=== PATIENT | female | born 1940 | race Caucasian/White ===

== ENCOUNTER 2017-01-24 09:35 | Emergency (ER) | payer MEDICARE, OTHER ==
[2017-01-24 09:43] VITALS: BP 145/77
--- NOTE | 2017-01-24 10:44 | UC ---
Complaint Female HPI - HPI Summary HPI Summary: burning with uretheral tenderness with dehydration---sometimes she gets this these sx with UTI sometimes she is just dehydrated--which is what she believes now, but just wants to be sure - History Of Current Complaint Hx Obtained From: Patient ?: No Onset/Duration: Sudden Onset, Lasting Days - 5, Still Present Timing: Constant Severity Initially: Moderate Severity Currently: Moderate Character: Burning Aggravating Factor(s): Urination Alleviating Factor(s): Nothing Associated Signs And Symptoms: Positive: Negative <Giselle Alfaro - Last Filed: 01/24/17 18:13> <Steffi Gupta - Last Filed: 01/25/17 06:57> - History Of Current Complaint Chief Complaint: UCGU Stated Complaint: URINARY ISSUE Time Seen by Provider: 01/24/17 10:28 - Allergies/Home Medications Allergies/Adverse Reactions: Allergies Allergy/AdvReac Type Severity Reaction Status Date / Time Wasp Venom Protein Allergy Severe Anaphylatic Verified 01/24/17 09:43 Shock Lactose Intolerance (GI) Allergy Unknown Verified 01/24/17 09:43 Reaction Details Latex AdvReac Rash Verified 01/24/17 09:43 PMH/Surg Hx/FS Hx/Imm Hx Previously Healthy: Yes Endocrine History: Hypothyroidism - Surgical History Surgical History: Yes Surgery Procedure, Year, and Place: [place]STERECT[place], 1977, [facility] [place], [facility]. [place], 1971, [place]. Ovarian Cyst Removed 06/04 at [facility] [place] - Family History Known Family History: Positive: None - Social History Occupation: Retired Lives: With Family Alcohol Use: Daily Alcohol Amount: 1 Drink Daily- Varies Substance Use Type: None Smoking Status (MU): Never Smoked Tobacco <Giselle Alfaro - Last Filed: 01/24/17 18:13> Review of Systems Constitutional: Negative Skin: Negative Eyes: Negative ENT: Negative Respiratory: Negative Cardiovascular: Negative Gastrointestinal: Negative Genitourinary: Dysuria Motor: Negative Neurovascular: Negative Musculoskeletal: Negative Neurological: Negative Psychological: Negative All Other Systems Reviewed And Are Negative: Yes <Giselle Alfaro - Last Filed: 01/24/17 18:13> Physical Exam Triage Information Reviewed: Yes Appearance: Well-Appearing, No Pain Distress, Well-Nourished Vital Signs: Initial Vital Signs Temp 98.1 F 01/24/17 09:39 Pulse 98 01/24/17 09:39 Resp 16 01/24/17 09:39 BP 145/77 01/24/17 09:39 Pulse Ox 100 01/24/17 09:39 Vital Signs Reviewed: Yes Eye Exam: Normal Eyes: Positive: Conjunctiva Clear ENT Exam: Normal ENT: Positive: Normal ENT inspection, Hearing grossly normal. Negative: Nasal congestion, Nasal drainage, Trismus, Muffled/hoarse voice Dental Exam: Normal Neck exam: Normal Neck: Positive: Supple, Nontender Respiratory Exam: Normal Respiratory: Positive: Normal breath sounds, No respiratory distress Cardiovascular Exam: Normal Cardiovascular: Positive: RRR, Pulses Normal, Brisk Capillary Refill Abdominal Exam: Normal Abdomen Description: Positive: Nontender, No Organomegaly, Soft. Negative: CVA Tenderness (R), CVA Tenderness (L) Bowel Sounds: Positive: Present Musculoskeletal Exam: Normal Musculoskeletal: Positive: Strength Intact, ROM Intact, No Edema Neurological Exam: Normal Neurological: Positive: Alert, Muscle Tone Normal Psychological Exam: Normal Skin Exam: Normal <Giselle Alfaro - Last Filed: 01/24/17 18:13> Vital Signs: Initial Vital Signs Temp 98.1 F 01/24/17 09:39 Pulse 98 01/24/17 09:39 Resp 16 01/24/17 09:39 BP 145/77 01/24/17 09:39 Pulse Ox 100 01/24/17 09:39 <Steffi Gupta - Last Filed: 01/25/17 06:57> Re-Evaluation - Re-Evaluation First Eval Change: Unchanged - ua =1 blood patient staes she always has this and has a cystoscopy <Giselle Alfaro - Last Filed: 01/24/17 18:13> Complaint Female Dx - Course Course Of Treatment: increase fluids, follow with pcp - Differential Dx/Diagnosis Differential Diagnosis/HQI/PQRI: Ureteral Stone, Urinary Tract Infection, Other - dysuria Provider Diagnoses: Dysuria <Giselle Alfaro - Last Filed: 01/24/17 18:13> Discharge <Giselle Alfaro - Last Filed: 01/24/17 18:13> <Steffi Gupta - Last Filed: 01/25/17 06:57> - Discharge Plan Condition: Stable Disposition: HOME Patient Education Materials: Dysuria (ED) Referrals: Susie Wilson MD [Primary Care Provider] - Maxim Yeung MD [Medical Doctor] - Attestation Statement User Type: Provider - I was available for consult. This patient was seen by the RENEE. The patient was not presented to, seen by, or examined by me. -Deisy <Steffi Gupta - Last Filed: 01/25/17 06:57>
== END 2017-01-24 10:52 | disposition home or self-care (01) ==
LOC: UCEAST 09:35
DX: R30.0 Dysuria (principal)
CPT/HCPCS: 81003; 99211; G0463

== ENCOUNTER 2017-06-22 07:34 | Inpatient (IN) | payer MEDICARE, OTHER ==
--- NOTE | 2017-06-13 19:23 | HP ---
HISTORY AND PHYSICAL: DATE OF SURGERY: 06/22/17 DATE OF OFFICE VISIT: 06/12/17 SURGEON: Monse Lynne MD * (DICTATED BY WALDO WALKER) PROCEDURE: Right total hip arthroplasty. CHIEF COMPLAINT: Right hip pain. HISTORY OF PRESENT ILLNESS: Ms. Mann is a 77-year-old female with complaints of right hip pain secondary to advanced osteoarthritis. She has failed conservative management and elected to proceed with a right total hip arthroplasty, which is scheduled with Dr. Lynne on 06/22/17. PAST MEDICAL HISTORY: 1. Hypothyroidism. 2. High cholesterol. 3. Sleep apnea. 4. History of liver cancer. PAST SURGICAL HISTORY: 1. Appendectomy. 2. Exploratory laparoscopy. 3. Hysterectomy. 4. Oophorectomy. CURRENT MEDICATIONS: 1. ProAir HFA. 2. Levothyroxine 75 mcg daily. 3. Vitamin B. 4. Aspirin 81 mg daily. 5. Vitamin C. 6. Centrum Silver. 7. Fish oil. 8. Glucosamine/chondroitin. 9. EpiPen. ALLERGIES: To WASPS. FAMILY HISTORY: Diabetes, dementia, COPD, and cancer. SOCIAL HISTORY: She is a 77-year-old female. She lives with her spouse. She does not smoke or use drugs. She uses occasional alcohol. REVIEW OF SYSTEMS: A complete 14-point review of systems was reviewed with the patient, and it was positive for hypothyroidism, sleep apnea, and exercise- induced asthma. She denies a history of DVT, PE, hepatitis C, HIV, MRSA, or anesthesia problems. PHYSICAL EXAMINATION GENERAL: She is well developed, well nourished, in no acute distress. VITAL SIGNS: She stands 5 feet 1 inch tall, he is 120 pounds. Her blood pressure is 142/84, heart rate is 96. HEENT: Normocephalic, atraumatic. NECK: Supple. No palpable lymph nodes. PULMONARY: Lungs are clear to auscultation bilaterally. CARDIO: Regular rate and rhythm. ABDOMEN: Soft, nontender, nondistended. NEUROLOGICAL: Alert and oriented x3. Cranial nerves II through XII are intact. MUSCULOSKELETAL: Right lower extremity, the skin is intact. She has no open wounds or abrasions. She walks with an antalgic type gait, favoring her right hip. She has decreased internal and external rotation of her right hip. She has 2+ dorsalis pedis pulses. Intact sensation in her lower extremities. Muscle group strengths are intact at 5/5. ASSESSMENT AND PLAN: Ms. Mann is a 77-year-old female with complaints of right hip pain secondary to advanced osteoarthrosis. She has failed conservative management and elected to proceed with a right total hip arthroplasty, which is scheduled for 06/22/[address] Lynne discussed the risks and benefits of the surgery at today's visit and all of her questions were answered. Coumadin, Colace, and Percocet were sent to her pharmacy for postoperative pain control and DVT prophylaxis. She will see Dr. Lynne back 2 weeks after the surgery. WALDO WALKER [id number]/[facility]PS #: [id number] MTDD
[~2017-06-22 07:34] MED LIST: Buffered Lidocaine 0.9% SYRIN* 5 ML/SYR SYRINGE INTRADERM ONE; Famotidine IV* 10 MG/ML 2 ML (20 mg) IV ONE; Metoclopramide TAB* 10 MG PO ONE
[2017-06-22] MEDS ORDERED: Metoclopramide TAB* 10 MG ONE (08:31)
[2017-06-22] MEDS ORDERED: Famotidine IV* 10 MG/ML 2 ML (20 mg) ONE (08:31)
[2017-06-22] MEDS ORDERED: ceFAZolin 2 GM PREMIX (*) 2 GM/50 ML BAG IVPB ONE (08:31)
[2017-06-22] MEDS ORDERED: Bupivacaine 0.5% SDV PF* 30 ML VIAL ONE ×2 (09:30→10:42)
[2017-06-22] MEDS ORDERED: Propofol* 10 MG/ML 20 ML BTL IV PUSH ONE (09:30)
[2017-06-22] MEDS ORDERED: Morphine PF AMP (0.5MG/ML)* 5 MG/10 ML AMP ONE (09:30)
[2017-06-22] MEDS ORDERED: Lidocaine 2% PF * 5 ML VIAL ONE (09:30)
[2017-06-22] MEDS ORDERED: Midazolam* 1 MG/ML 5 ML VIAL (5 MG) ONE (09:30)
[2017-06-22] MEDS ORDERED: fentaNYL* 50 MCG/ML 2 ML VIAL (100 MCG VIAL) ONE (09:30)
[2017-06-22] MEDS ORDERED: KETAMINE HCL* 50 MG/ML 10 ML VIAL ONE (09:30)
[2017-06-22] MEDS ORDERED: Lidocaine 0.5%* 50 ML SDV ONE (09:30)
[2017-06-22] MEDS ORDERED: Ondansetron INJ* 2 MG/ML VIAL ONE (09:30)
[2017-06-22] MEDS ORDERED: Dexamethasone IV* 4 MG/ML 1 ML (4 MG) ONE (09:30)
[2017-06-22] MEDS ORDERED: Ketorolac INJ* 30 MG/ML 1 ML VIAL ONE (09:30)
[2017-06-22] MEDS ORDERED: diPHENhydraMINE IV* 50 MG/ML 1 ml VIAL (BENADRYL) IV PRN ×2 (10:23→12:06)
[2017-06-22] MEDS ORDERED: Polyethylene Glycol 3350* 17 GM PACKET PO PRN (10:23)
[2017-06-22] MEDS ORDERED: Bisacodyl SUPP* 10 MG SUPP PR PRN (10:23)
[2017-06-22] MEDS ORDERED: EPINEPHRINE 1 MG/ML 1 ML VIAL SUBCUT PRN (10:27)
[2017-06-22] MEDS ORDERED: Phenylephrine IV* 40 MCG/ML 10 ML SYRINGE ONE (11:05)
[2017-06-22] MEDS ORDERED: EPHEDrine (Pressors)* 50 MG/ML VIAL ONE (11:07)
[2017-06-22] MEDS ORDERED: Ondansetron INJ* 2 MG/ML VIAL IV PRN ×2 (11:46→12:06)
[2017-06-22] MEDS ORDERED: fentaNYL* 50 MCG/ML 2 ML VIAL (100 MCG VIAL) IV PRN (11:46)
[2017-06-22] MEDS ORDERED: Naloxone* 0.4 MG/ML 1 ML VIAL IV PRN ×3 (12:06→12:19)
[2017-06-22] MEDS ORDERED: EPHEDrine (Pressors)* 50 MG/ML VIAL IV PUSH PRN (12:06)
[2017-06-22] MEDS ORDERED: oxyCODONE/Acetamin 5/325 MG* TAB PO PRN ×2 (12:06)
[2017-06-22] MEDS ORDERED: Ketorolac INJ* 30 MG/ML 1 ML VIAL IV PRN (12:06)
[2017-06-22] MEDS ORDERED: Ropivacaine 0.1% (300 MG) in 300mL NS EPIDURAL EPIDURAL SCH (12:20)
[2017-06-22] MEDS ORDERED: Ropivacaine* 300 MG in NS 0.9% 250 ML* 240 ML EPIDURAL SCH (13:00)
--- NOTE | 2017-06-22 13:42 | RAD ---
Indication: Right total hip replacement. Single view of the pelvis demonstrates right hip replacement in satisfactory position. No loosening is noted. Pelvic ring is intact. IMPRESSION: Intraoperative control films for right hip replacement.
[2017-06-22] MEDS ORDERED: diPHENhydraMINE IV* 50 MG/ML 1 ml VIAL (BENADRYL) ONE (14:06)
--- NOTE | 2017-06-22 14:36 | RAD ---
Indication: Post RIGHT total hip arthroplasty. Comparison: Intraoperative exam of the same date and May 03, 2017 radiographs. Technique: Low AP pelvis and proximal femurs as well as AP and crosstable lateral views RIGHT hip Report: RIGHT total hip prosthesis in place with anatomic alignment. No periprosthetic fracture evident. Surrounding soft tissue edema and soft tissue emphysema. Pelvic phleboliths. IMPRESSION: Unremarkable immediate postop appearance following RIGHT total hip replacement.
[2017-06-22] MEDS ORDERED: Warfarin TAB(*) 6 MG PO ONE (17:00)
[2017-06-22] MEDS ORDERED: ceFAZolin 1 GM VIAL(*) 1 GM in NS 0.9% 50 ML* 50 ML IVPB SCH (18:00)
[2017-06-22] MEDS ORDERED: Aspirin Low Dose CHEW TAB* 81 MG PO SCH (20:00)
[2017-06-22 20:34] LABS: Albumin 3.4 g/dL (3.2-5.2); BUN/Creatinine Ratio 22.1 (8-20); EGFR African American 108.5 (>60); EGFR Non-African American 84.4 (>60); Globulin 2.3 g/dL (2-4); Potassium 4.5 mmol/L (3.5-5.0); Total Bilirubin 0.5 mg/dL (0.2-1.0); Total Protein 5.7 g/dL (6.4-8.9)
[2017-06-22] MEDS ORDERED: Iohexol 350* (CONTRAST) 500 ML MDV IV ONE (20:40)
[2017-06-22] MEDS ORDERED: ceFAZolin 1 GM in Dextrose (*) 1 GM/50 ML BAG IVPB SCH (21:00)
--- NOTE | 2017-06-22 22:24 | CONS ---
CC: Dr. Lynne * CONSULTATION REPORT: DATE OF CONSULT: 06/22/17 ATTENDING PHYSICIAN: Spenser Gupta MD PHYSICIAN REQUESTING CONSULTATION: Monse Lynne MD REASON FOR CONSULTATION: Altered vision. HISTORY OF PRESENT ILLNESS: Ms. Mann is a relatively healthy 77-year-old female with past medical history significant for hypothyroidism and sleep apnea who underwent a right hip replacement today with Dr. Lynne. She was recovered in the PACU and per the , did not make a note of any altered vision. She had both an epidural and general anesthesia. The patient subsequently developed some itching and received a dose of Benadryl. She arrived on short stay around 2 to 2:30 p.m. As she woke up, she noted to her and then subsequently to the nurse that she was having what she would describe as blurry vision. The nurse notified the orthopedic PA, who asked Hospitalist for a consultation. The patient states she has a history of vertigo and states that this does not feel like vertigo. She reports vertigo as a spinning and that her vision is moving towards a circular motion towards her face. The patient reports that when she closes her eyes, it goes away. When she closes 1 eye, it gets better. The patient prefers to have the lights off. She denies any headache or nausea with this. The patient reports no other neurological deficits, numbness, or weakness. Hospitalists were asked to evaluate the patient's altered vision. PAST MEDICAL HISTORY: 1. Hypothyroidism. 2. High cholesterol. 3. Sleep apnea. 4. Liver cancer. PAST SURGICAL HISTORY: 1. Appendectomy. 2. Laparoscopy. 3. Hysterectomy. 4. Oophorectomy. HOME MEDICATIONS: Include: 1. Multivitamin 1 capsule oral daily. 2. Calcium 1 tablet oral daily. 3. Synthroid 75 mcg oral daily. 4. Vitamin B12 500 mcg oral daily. 5. Vitamin D 1000 units oral daily. 6. Citracal 400 mg oral daily. 7. Aspirin 81 mg oral daily. 8. Vitamin C 1000 mg oral daily. 9. Epinephrine subcu once as needed. 10. Glucosamine chondroitin 1 tablet oral daily. Currently in the hospital, she is additionally on: 1. Ancef. 2. Zofran. 3. Percocet. 4. MiraLAX. 5. Toradol. 6. Colace. 7. Benadryl. 8. Tylenol. ALLERGIES: WASP VENOM, PROTEIN, LACTULOSE INTOLERANCE, LATEX. FAMILY HISTORY: The patient states she has a family history of diabetes, dementia, COPD and cancer. SOCIAL HISTORY: The patient denies any alcohol or drug use. She lives at home with her spouse. He would be her surrogate decision maker in the event the patient cannot make decisions for herself. REVIEW OF SYSTEMS: I performed a 14-point review of systems; all the pertinent positives and negatives are mentioned in the history of present illness, the remaining review of systems are negative. PHYSICAL EXAM: Appearance: The patient is alert, lying in bed with her eyes closed, in no apparent distress. Head, Eyes, Ears, Nose and Throat: Normocephalic/atraumatic. Pupils were equal and reactive to light. The patient has some nystagmus to both the right and left gaze. It also appears she has some eye movements while staring straight ahead. Neck: Supple. There was no lymphadenopathy noted. Lungs: There was no accessory muscle use and lungs are clear to auscultation. Heart: S1, S2 were crisp. Rate and rhythm were regular. Abdomen was soft, nontender, nondistended. Skin: Right hip incision was intact. Neurological: The patient was alert and oriented x3. Cranial nerves II through XII were intact. Musculoskeletal: Equal extremity strength bilaterally. I did not access the full strength of the right lower extremity. IMPRESSION: This is a 77-year-old female status post right total hip replacement who has experienced alternation of vision. ASSESSMENT AND PLAN: 1. Altered vision. Case was discussed with Neurology. She will have a CT of the head now. If this is negative for any bleed, Orthopedic Surgery has okayed the administration of baby aspirin. Subsequently, she will have a CTA of the head and neck once she has a repeat metabolic panel to rule out any large vessel occlusion. If this were to be a neurologic event, the patient is clearly not a candidate for TPA due to her surgery. It is likely that these symptoms are from one of the anesthetics or medication that she has received postoperatively. She will be evaluated by Dr. Sebastian from Neurology in the morning. If her symptoms persist, consideration will be given for MRI. For the time being, overnight, she will be placed on telemetry and will have neuro checks. 2. Postop day 0, hip replacement management will be per Orthopedic Surgery. The patient will have followup lab work done tomorrow. Lam will be discontinued on postop day 1 and she will have physical therapy and occupational therapy. She has Percocet ordered for pain control. 3. Hypothyroidism, Synthroid will continue. 4. Sleep apnea. She has her home sleep apnea machine to wear. 5. DVT prophylaxis. The patient will be started on Lovenox tomorrow and was given warfarin tonight. 6. Fluid, electrolytes, and nutrition. The patient will have a regular diet. TIME SPENT: On this consultation was 60 minutes and 35 minutes were spent with the patient discussing events after her surgery and past medical history. DERREK CLARK NP [id number]/[facility] #: [id number] KEV
[2017-06-22] MEDS: Docusate CAP* 100 MG PO SCH (23:23)
[2017-06-22] MEDS: Aspirin Low Dose CHEW TAB* 81 MG PO SCH (23:23)
[2017-06-23] MEDS: ceFAZolin 1 GM in Dextrose (*) 1 GM/50 ML BAG IVPB SCH ×2 (02:18→10:00)
[2017-06-23 05:52] LABS: Hematocrit 27 % (35-47); Hemoglobin 9.3 g/dl (12.0-16.0)
[2017-06-23] MEDS ORDERED: Ondansetron TAB* 4 MG PO PRN (06:00)
[2017-06-23] MEDS ORDERED: Morphine INJ* 2 MG/ML 1 ML SYRINGE (TWO MG - NEW SYRINGE VERSION) IV PRN (06:00)
[2017-06-23] MEDS ORDERED: oxyCODONE TAB* 5 MG TAB PO PRN ×2 (06:00→12:29)
[2017-06-23] MEDS ORDERED: diPHENhydraMINE IV* 50 MG/ML 1 ml VIAL (BENADRYL) IV PRN (06:00)
[2017-06-23] MEDS ORDERED: oxyCODONE/Acetamin 5/325 MG* TAB PO PRN ×2 (06:00)
[2017-06-23] MEDS: Levothyroxine TAB* 75 MCG TAB PO SCH (06:05)
[2017-06-23 06:06] LABS: BUN/Creatinine Ratio 20.6 (8-20); Calcium 8.5 mg/dL (8.6-10.3); EGFR African American 108.5 (>60); EGFR Non-African American 84.4 (>60); Potassium 4.5 mmol/L (3.5-5.0)
--- NOTE | 2017-06-23 07:19 | RAD ---
INDICATION: Visual changes status post anesthesia. COMPARISON: There are no prior studies available for comparison. TECHNIQUE: Contiguous axial sections of the brain were obtained from the skull base to the vertex without contrast. FINDINGS: The ventricles, cisterns and sulci are within normal limits. No significant focal abnormality or mass effect is seen. There is no evidence for hemorrhage. No significant focal osseous abnormality is seen. The visualized portion of the paranasal sinuses and mastoid air cells appear clear. IMPRESSION: NO EVIDENCE FOR GROSS ACUTE INFARCT, MASS EFFECT OR HEMORRHAGE.
[2017-06-23] MEDS: Ondansetron INJ* 2 MG/ML VIAL IV PRN ×2 (08:52→14:51)
[2017-06-23] MEDS: Cyanocobalamin TAB* 500 MCG PO SCH (08:55)
[2017-06-23] MEDS ORDERED: Iohexol 350* (CONTRAST) 500 ML MDV IV ONE (09:15)
[2017-06-23] MEDS: Acetaminophen TAB* 325 MG PO PRN ×3 (09:59→23:59)
[2017-06-23] MEDS: Aspirin Low Dose CHEW TAB* 81 MG PO SCH (09:59)
[2017-06-23] MEDS: Docusate CAP* 100 MG PO SCH ×2 (09:59→21:04)
[2017-06-23] MEDS ORDERED: Enoxaparin(*) 30 MG/0.3 ML SYR SUBCUT SCH (11:00)
[2017-06-23] MEDS ORDERED: Scopolamine 1.5 mg* PATCH ONE (11:33)
[2017-06-23] MEDS ORDERED: Scopolamine 1.5 mg* PATCH TRANSDERM SCH (12:00)
[2017-06-23] MEDS ORDERED: Scopolamine PATCH Remove* 1 NOTE MISC PATCH OFF SCH (12:00)
--- NOTE | 2017-06-23 12:27 | PN ---
Progress Note - Progress Note Date of Service: 06/23/17 SOAP: Subjective: 77 y/o female s/p R BRYANT 06/[address] Lynne. Patient does not remember yesterdays events, head feels clear today, no light headedness. C/O nausea with vomiting, unable to tolerate solid foods currently. no questions / concerns about surgery. afebrile, vss Objective: General- resting in bed, AO, NAD MSK- dressing intact, + DF/PF b/l, PT2+ , sensation intact to light touch b/l, neg homans b/l. Vital Signs Temp 98.1 F 06/23/17 07:19 Pulse 100 06/23/17 07:19 Resp 16 06/23/17 07:35 BP 105/49 06/23/17 07:19 Pulse Ox 94 06/23/17 07:19 Intake & Output 06/22/17 06/23/17 06/23/17 18:59 06:59 18:59 Intake Total 2200 2660 Output Total 125 400 250 Balance 2074 2260 -250 Weight 54.885 kg 54.885 kg Intake: IV Fluids 2200 2000 LR 2200 2000 Oral 660 Output: Urine 0 Lam 125 400 Emesis 250 Assessment: Stable 77 y/o female s/p R BRYANT 06/[address] Lynne. Plan: - Neuro consult placed- Likely symptoms from anesthesia, CT brain negative - DVT prophylax- INR 1.24, 4mg coumadin tonight, continue lovenox - Continue PT/ OT - Pain regimen changed- Tylenol at baseline with Ultram for mild/ moderate pain and 1/2 oxycodone to 1 for mod- severe pain. Active Medications Generic Name Dose Route Start Last Admin Trade Name Freq PRN Reason Stop Dose Admin Acetaminophen 650 mg 06/22/17 10:23 06/23/17 09:59 Tylenol Tab* PO 650 mg Q4H PRN Administration PAIN OR TEMPERATURE Aspirin 81 mg 06/22/17 20:00 06/23/17 09:59 Aspirin Low Dose Tab* PO 81 mg DAILY JANICE Administration Bisacodyl 10 mg 06/22/17 10:23 Dulcolax Supp* CA DAILY PRN constipation Cyanocobalamin 500 mcg 06/23/17 09:00 06/23/17 08:55 Vitamin B12 Tab* PO Not Given DAILY JANICE Diphenhydramine HCl 12.5 mg 06/23/17 06:00 Benadryl Iv* IV Q6H PRN PRURITIS Docusate Sodium 100 mg 06/22/17 21:00 06/23/17 09:59 Colace Cap* PO 100 mg BID JANICE Administration Enoxaparin Sodium 30 mg 06/23/17 11:00 06/23/17 11:31 Lovenox(*) SUBCUT 30 mg Q24H JANICE Administration Epinephrine HCl 0.3 mg 06/22/17 10:27 Adrenalin 1 Mg/Ml SUBCUT ONCE PRN Allergy Symptoms Lactated Ringer's 1,000 mls @ 100 mls/hr 06/22/17 11:00 06/23/17 01:39 Lactated Ringers 1000 Ml Bag* IV 100 mls/hr PER RATE JANICE Administration Lactulose 30 ml 06/22/17 10:23 Lactulose* PO Q6H PRN constipation Levothyroxine Sodium 75 mcg 06/23/17 06:00 06/23/17 06:05 Synthroid Tab* PO 75 mcg DAILY@0600 [facility] Administration Magnesium Hydroxide 30 ml 06/22/17 10:23 Milk Of Magnesia Liq* PO Q6H PRN constipation Morphine Sulfate 2 mg 06/23/17 06:00 Morphine Inj (Syringe)* IV Q2H PRN PAIN Ondansetron HCl 4 mg 06/23/17 06:00 06/23/17 08:52 Zofran Inj* IV 4 mg Q6H PRN Administration nausea Ondansetron HCl 4 mg 06/23/17 06:00 Zofran Tab* PO Q6H PRN NAUSEA Oxycodone HCl 10 mg 06/23/17 06:00 Roxycodone Tab* PO Q4H PRN SEVERE PAIN Oxycodone/Acetaminophen 1 tab 06/23/17 06:00 Percocet 5/325 Tab* PO Q4H PRN PAIN Oxycodone/Acetaminophen 2 tab 06/23/17 06:00 Percocet 5/325 Tab* PO Q4H PRN PAIN Pharmacy Profile Note 0 note 06/22/17 17:00 06/22/17 17:27 Coumadin Daily Reminder* FOLLOW UP 1 note 1700 JANICE Administration Pharmacy Profile Note 1 note 06/23/17 12:00 Scopolamine Patch Remove* PATCH OFF .AFTER 72 HOURS JANICE Polyethylene Glycol/Electrolytes 17 gm 06/22/17 10:23 Miralax* PO DAILY PRN Constipation Scopolamine 1 patch 06/23/17 12:00 06/23/17 11:34 Transderm-Scop 1.5 Mg Patch* TRANSDERM 1 patch Q72H JANICE Administration
--- NOTE | 2017-06-23 13:46 | RAD ---
CPT II Codes: 3100F INDICATION: Visual disturbance COMPARISON: None TECHNIQUE: Multiple majano scale, color and doppler tracings of the common, internal and external carotid and vertebral arteries were obtained. Stenosis estimations reflect velocity criteria that have been correlated to angiographic stenosis calculations based on the distal internal carotid diameter. Right carotid: There is mild, partially calcified plaque within the right carotid bulb. The peak systolic velocity in the proximal right internal carotid artery is 94 cm/s and the maximum end-diastolic velocity is 36 cm/s. The peak systolic velocity in the distal common carotid artery is 90 cm/s and the maximum end-diastolic velocity is 36 cm/s. The internal to common carotid ratio is 1.05. This would be consistent with a less than 50% stenosis. Left carotid: There is mild partially calcified plaque within the left carotid bulb. The peak systolic velocity in the proximal right internal carotid artery is 98 cm/s and the maximum end-diastolic velocity is 40 cm/s. The peak systolic velocity in the distal common carotid artery is 85 cm/s and the maximum end-diastolic velocity is 20 cm/s. The internal to common carotid ratio is 1.16. This would be consistent with a less than 50% stenosis. Vertebrals: There is antegrade flow in both vertebral arteries. IMPRESSION: There is no sonographic evidence of hemodynamically significant stenosis in the bilateral carotid arteries.
--- NOTE | 2017-06-23 14:45 | PN ---
Subjective Date of Service: 06/23/17 Interval History: Patient is in good spirits. No C/O blurred vision. No pain in hip at rest. 2 episodes of vomiting after position changes, improved with scopalamine patch. No nausea, no vertigo or dizziness. No CP, SOB, F/C, Abdominal pain, dysuria, other neurological deficits or pain. Able to get OOB to commode with little difficulty. Family History: Unchanged from Admission Social History: Unchanged from Admission Past Medical History: Unchanged from Admission Objective Active Medications: Acetaminophen (Tylenol Tab*) 650 mg PO Q4H PRN PRN Reason: PAIN OR TEMPERATURE Last Admin: 06/23/17 09:59 Dose: 650 mg Aspirin (Aspirin Low Dose Tab*) 81 mg PO DAILY [facility] Last Admin: 06/23/17 09:59 Dose: 81 mg Bisacodyl (Dulcolax Supp*) 10 mg ME DAILY PRN PRN Reason: constipation Cyanocobalamin (Vitamin B12 Tab*) 500 mcg PO DAILY [facility] Last Admin: 06/23/17 08:55 Dose: Not Given Diphenhydramine HCl (Benadryl Iv*) 12.5 mg IV Q6H PRN PRN Reason: PRURITIS Docusate Sodium (Colace Cap*) 100 mg PO BID [facility] Last Admin: 06/23/17 09:59 Dose: 100 mg Enoxaparin Sodium (Lovenox(*)) 30 mg SUBCUT Q24H [facility] Last Admin: 06/23/17 11:31 Dose: 30 mg Epinephrine HCl (Adrenalin 1 Mg/Ml) 0.3 mg SUBCUT ONCE PRN PRN Reason: Allergy Symptoms Lactated Ringer's (Lactated Ringers 1000 Ml Bag*) 1,000 mls @ 100 mls/hr IV PER RATE [facility] Last Admin: 06/23/17 01:39 Dose: 100 mls/hr Lactulose (Lactulose*) 30 ml PO Q6H PRN PRN Reason: constipation Levothyroxine Sodium (Synthroid Tab*) 75 mcg PO DAILY@0600 [facility] Last Admin: 06/23/17 06:05 Dose: 75 mcg Magnesium Hydroxide (Milk Of Magnesia Liq*) 30 ml PO Q6H PRN PRN Reason: constipation Ondansetron HCl (Zofran Inj*) 4 mg IV Q6H PRN PRN Reason: nausea Last Admin: 06/23/17 08:52 Dose: 4 mg Ondansetron HCl (Zofran Tab*) 4 mg PO Q6H PRN PRN Reason: NAUSEA Oxycodone HCl (Roxycodone Tab*) 5 mg PO Q4H PRN PRN Reason: PAIN - MODERATE TO SEVERE Pharmacy Profile Note (Coumadin Daily Reminder*) 0 note FOLLOW UP 1700 JANICE Last Admin: 06/22/17 17:27 Dose: 1 note Pharmacy Profile Note (Scopolamine Patch Remove*) 1 note PATCH OFF .AFTER 72 HOURS [facility] Polyethylene Glycol/Electrolytes (Miralax*) 17 gm PO DAILY PRN PRN Reason: Constipation Scopolamine (Transderm-Scop 1.5 Mg Patch*) 1 patch TRANSDERM Q72H [facility] Last Admin: 06/23/17 11:34 Dose: 1 patch Tramadol HCl (Ultram*) 50 mg PO Q6H PRN PRN Reason: PAIN - MILD TO MODERATE Warfarin Sodium (Coumadin Tab(*)) 4 mg PO ONCE@1700 ONE PRN Reason: Protocol Stop: 06/23/17 17:01 Vital Signs 06/22/17 06/22/17 06/22/17 14:45 15:00 15:15 Temperature 97.3 F Pulse Rate 92 92 99 Respiratory 12 12 14 Rate Blood Pressure 114/65 105/66 124/62 (mmHg) O2 Sat by Pulse 99 97 100 Oximetry 06/22/17 06/22/17 06/22/17 15:28 15:47 16:00 Temperature 97.3 F Pulse Rate 99 Respiratory 14 14 Rate Blood Pressure 124/62 (mmHg) O2 Sat by Pulse 100 98 Oximetry 06/22/17 06/22/17 06/22/17 16:29 16:31 17:29 Temperature 97.3 F 97.0 F Pulse Rate 96 90 Respiratory 14 14 Rate Blood Pressure 114/64 109/54 (mmHg) O2 Sat by Pulse 98 99 Oximetry 06/22/17 06/22/17 06/22/17 17:59 19:28 19:36 Temperature 97.3 F Pulse Rate 98 Respiratory 14 12 Rate Blood Pressure 109/60 (mmHg) O2 Sat by Pulse 99 98 Oximetry 06/22/17 06/22/17 06/22/17 21:10 21:36 23:00 Temperature 97.0 F Pulse Rate 103 Respiratory 16 13 15 Rate Blood Pressure 107/61 (mmHg) O2 Sat by Pulse 97 Oximetry 06/22/17 06/22/17 06/23/17 23:23 23:44 00:00 Temperature 98.2 F Pulse Rate 103 Respiratory 16 16 Rate Blood Pressure 111/61 (mmHg) O2 Sat by Pulse 97 97 Oximetry 06/23/17 06/23/17 06/23/17 03:38 05:21 05:35 Temperature 100.0 F Pulse Rate 100 Respiratory 16 15 Rate Blood Pressure 106/62 (mmHg) O2 Sat by Pulse 98 98 Oximetry 06/23/17 06/23/17 06/23/17 07:19 07:35 12:12 Temperature 98.1 F 97.9 F Pulse Rate 100 92 Respiratory 18 16 18 Rate Blood Pressure 105/49 99/54 (mmHg) O2 Sat by Pulse 94 95 Oximetry 06/23/17 13:52 Temperature Pulse Rate Respiratory Rate Blood Pressure (mmHg) O2 Sat by Pulse 94 Oximetry Oxygen Devices in Use Now: None Appearance: Patient is a 77yo female who appears stated age and is sitting in the bed in [facility]. Eyes: No Scleral Icterus, PERRLA Ears/Nose/Mouth/Throat: NL Teeth, Lips, Gums, Clear Oropharnyx, Mucous Membranes Moist, - - Moderate chemosis B/L without conjunctival injection. Neck: NL Appearance and Movements; NL JVP, Trachea Midline Respiratory: Symmetrical Chest Expansion and Respiratory Effort, Clear to Auscultation Cardiovascular: NL Sounds; No Murmurs; No JVD, RRR, No Edema, - - Pulses 2+ in the B/L LE. Abdominal: NL Sounds; No Tenderness; No Distention, No Hepatosplenomegaly Lymphatic: No Cervical Adenopathy Extremities: No Edema, No Clubbing, Cyanosis Skin: No Nodules or Sclerosis, - - Hip incision covered by CDI bulky dressing. No ecchymosis or hematoma evident. Neurological: Alert and Oriented x 3, NL Sensation, NL Muscle Strength and Tone Result Diagrams: 06/23/17 05:29 06/23/17 05:29 Assess/Plan/Problems-Billing Assessment: Patient is a 77yo female with a PMH signficant for HLD, hypothyroidism, GINA and Liver cancer who is POD #1 after a RTHA who developed blurry vision which has now resolved and is doing well. - Patient Problems (1) Post-operative state Current Visit: Yes Status: Acute Code(s): Z98.890 - OTHER SPECIFIED POSTPROCEDURAL STATES SNOMED Code(s): 41573806 Comment: POD #1, Excellent pain control and working well with PT/OT. C/O Vomiting which resolved with scopalamine patch. Passing flatus and urinating without difficulty. (2) Blurry vision, bilateral Current Visit: Yes Status: Acute Code(s): H53.8 - OTHER VISUAL DISTURBANCES SNOMED Code(s): 479315033 Comment: Appreciate Neurological Consult. Resolved. CT of head and Cartoid Doppler negative. ASA given, will resume home ASA tomorrow. Will MRI brain if indicated. Likely due to anesthesia AE. (3) Hypothyroidism Current Visit: Yes Status: Acute Code(s): E03.9 - HYPOTHYROIDISM, UNSPECIFIED SNOMED Code(s): 57229623 Comment: Continue synthroid. (4) Hyperlipidemia Current Visit: Yes Status: Acute Code(s): E78.5 - HYPERLIPIDEMIA, UNSPECIFIED SNOMED Code(s): 64595772 Comment: Continue Fish Oil at D/C. (5) DVT prophylaxis Current Visit: Yes Status: Acute Code(s): TEO9232 - SNOMED Code(s): 273102529 Comment: Lovenox with bridge to warfarin per ortho. (6) Full code status Current Visit: Yes Status: Acute Code(s): Z78.9 - OTHER SPECIFIED HEALTH STATUS SNOMED Code(s): 730925668 Status and Disposition: Patient is POD #1 after a BRYANT. Possible D/C over the weekend.
[2017-06-23] MEDS ORDERED: Warfarin TAB(*) 4 MG PO ONE (17:00)
[2017-06-23] MEDS: traMADol TAB* 50 MG PO PRN (18:58)
[2017-06-23] MEDS: Magnesium Hydroxide LIQ* 30 ML UDC PO PRN (21:04)
--- NOTE | 2017-06-24 00:49 | CONS ---
CONSULTATION REPORT: DATE OF CONSULT / DICTATION: 06/23/17 PATIENT OF: WALDO Swann HISTORY OF PRESENT ILLNESS: This is a 77-year-old woman, who was asked to consult on for abnormal eye movements. She had a right hip replacement yesterday morning and required both general anesthesia and epidural. Shortly after she came out of anesthesia, she was noticed to have generalized confusion as well as abnormal eye movements. Luz Elena Lora NP, saw her in the evening, at which point, she was having some nystagmus and lateral gaze but also random eye movements in all directions. She has never had prior stroke. She has had a past history of vertigo, which responded to Arthur maneuvers. She said that she does not remember any dizziness yesterday, but at that time she was saying that she did have sensation of spinning. She had no dysmetria and her strength was good yesterday. She had no other complaints, no headache, weakness. PAST MEDICAL HISTORY: She has a past history of hypothyroidism, elevated cholesterol, sleep apnea, liver cancer. PAST SURGICAL HISTORY: Status post appendectomy, laparoscopy, hysterectomy, oophorectomy. MEDICATIONS: At home, include: 1. Calcium 1 tab daily. 2. Synthroid 75 mcg daily. 3. Vitamins. 4. 400 mg daily. 5. Aspirin 81 mg daily. 6. Epinephrine subcu as needed. ALLERGIES: She is allergic to WASP VENOM, LACTULOSE, LATEX. FAMILY HISTORY: Diabetes, dementia, COPD, and cancer. SOCIAL HISTORY: She lives with her . She does not smoke, drink, or use drugs. REVIEW OF SYSTEMS: Negative in all 14 spheres other than the HPI. PHYSICAL EXAM: Temperature 99, pulse 94, respiratory rate 18, blood pressure 108/89. She is alert and oriented with normal speech and comprehension. Cranial nerves II through XII are intact. Fundi were benign. Motor exam revealed normal tone, strength other than she is limited in her right leg because of her hip surgery, sensation is intact to light touch, reflexes were 1 and equal. Chest: Clear. Cardiovascular: Regular rate and rhythm. DIAGNOSTIC STUDIES/LAB DATA: Her CT scan was reviewed and was normal. Her carotid Doppler was negative. Her hematocrit is 27. INR 1.24. She has had normal CMP other than total protein 5.7, glucose of 180 yesterday, today her sodium is 131. IMPRESSION: I discussed with the hospitalist last night, most likely this was medication related from her anesthesia. She had confusion and abnormal eye movements that were most pronounced right when she came out of anesthesia and then slowly improved and totally resolved last evening. I think that it is highly unlikely that this is vascular problem and I do not think any further workup needs to be done at this point. Thank you for sharing her case. [id number]/[facility] #: [id number] KEV
--- NOTE | 2017-06-24 02:28 | OP ---
OPERATIVE REPORT: DATE OF OPERATION: 06/22/17 DATE OF : 44 SURGEON: Monse Lynne MD. WORK MEASUREMENT ENGINEER: WALDO Winslow Ms. did help throughout the procedure with preparation of the leg, wound retraction, manipulation of the hip, and wound closure. ANESTHESIOLOGIST: Dr. Fraser. ANESTHESIA: Spinal. 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 OPERATIVE PROCEDURE: Right total hip arthroplasty. HARDWARE USED: [place] uncemented total hip hardware. For the cup, a Trident acetabular shell 48D with a single 20 mm screw. For the liner a Trident X3 , 36 , 0-degree polyethylene insert. For the stem, an Accolade TMZF size 2 with a 127-degree neck. And for the head, a Biolox delta ceramic V40 femoral head 36-+ 0. COMPLICATIONS: None. ESTIMATED BLOOD LOSS: 300 cc. SPECIMENS: Femoral head and acetabular reaming sent to Pathology. BRIEF HISTORY/INDICATION: Ms. Mann is a 77-year-old female with years of increasingly severe right hip pain. She elected to undergo a right total hip arthroplasty due to continued pain and decreased quality of life. She failed conservative treatment with antiinflammatories, pain medication, physical therapy, and ambulatory assistive devices. Informed consent was obtained from the patient. She understood the risks of surgery included, but were not limited to bleeding, infection, damage to nearby structures, continued pain, need for further surgery, intraoperative fracture, nerve palsy, hardware failure or loosening, dislocation, leg length discrepancy, stroke, heart attack, blood clot and . She wished to proceed. INTRAOPERATIVE FINDINGS: Intraoperatively, the patient was noted to have severe endstage arthritis of the hip joint with complete loss of cartilage along the femoral head and acetabulum. DESCRIPTION OF PROCEDURE: Ms. Mann was identified in the preanesthesia unit. Her right lower extremity was marked as the correct operative side. Informed consent was signed and placed in the chart. The patient was taken to the operating room and placed under spinal anesthesia. A Lam catheter was placed. She was placed in the left lateral decubitus on the pegboard with all bony prominences well padded. Right lower extremity was prepped and draped in usual sterile fashion. Preop time-out was made to correctly identify the patient 's side and site. Appropriate perioperative antibiotics were given within 1 hour of incision. A 12-cm posterior hip incision was made with a 10 blade and carried down to the lateral fascial layer. Lateral fascial layer was incised in line with the skin incision. Charnley retractor was placed. The piriformis and conjoined tendons were elevated off the posterolateral femur. These were tagged with two #5 Ethibonds. Electrocautery was used to elevate a posterior capsular flap as well and this was also tagged with two #5 Ethibonds. The hip was carefully dislocated. Lesser troch to center of the femoral head measured 50 mm. Oscillating saw was used to make the appropriate femoral neck cut. Femoral head was sent to Pathology. The femur was carefully retracted anteriorly. After appropriate placement of retractors, the acetabulum was easily visualized. A long-handled knife was used to sharply remove any remaining labrum from the acetabular rim. The acetabulum was sequentially reamed up to a size 47. Bleeding subchondral bone bed was obtained. A 47 trial had good fit as well as appropriate anteversion and abduction angle. Final implant chosen was a Trident hemispherical hole shell 48D. A single 20-mm cancellous bone screw was placed in the superior posterior quadrant for extra stability. Liner chosen was a Trident X3, 0- degree polyethylene insert 36C. This was impacted into the acetabulum without difficulty. Attention was turned back to preparation of the femur. A canal finder was used to enter the proximal femur. Proximal femur was sequentially broached up to a size 2. Size 2 had excellent fit and appropriate anteversion. Size 2 broach was left in the femur and a 127 neck trial with a 36, +0 head trial was chosen. Lesser troch to center of the femoral head was 52 mm. The hip was reduced and taken through a range of motion. The hip was stable in all positions. There was satisfactory leg length and soft tissue tension. The hip was carefully dislocated. All trials were carefully removed. Final implant chosen was an Accolade TMZF size 2 with a 127-degree neck. This was carefully impacted into the femoral canal. There were no complications. A 36, +0 Biolox delta ceramic V40 femoral head and chosen as femoral head. This was impacted on to the femoral neck. The hip was reduced and taken through range of motion. The hip was stable in all positions. The hip was copiously irrigated with sterile saline. The previously tagged capsule and tendons were reapproximated to the posterolateral femurs using 2 trochanteric drill holes. Lateral fascial layer was reapproximated using interrupted #1 Vicryls. The rest of the incision was closed in a layered fashion using 0 and 2-0 Vicryls. Skin was closed using running 3-0 Monocryl and Dermabond. Sterile Adaptic, 4x4s, and paper tape were placed over the incision. The patient's anesthesia was reversed without difficulty. She was taken to the PACU in stable condition. Intended weightbearing will be weightbearing as tolerated. Intended DVT prophylaxis will be Coumadin with a Lovenox bridge. [id number]/[facility] #: [id number] KEV
[2017-06-24 05:18] LABS: Hematocrit 27 % (35-47); Hemoglobin 9.4 g/dl (12.0-16.0); Mean Corpuscular HGB Conc 35 g/dl (31-36); Mean Corpuscular Hemoglobin 35 pg (27-31); Mean Corpuscular Volume 99 fL (80-97); Mean Platelet Volume 7 um3 (7.4-10.4); Red Blood Count 2.68 10^6/ul (4.0-5.4); Red Cell Distribution Width 14 % (10.5-15); White Blood Count 9.6 10^3/ul (3.5-10.8)
[2017-06-24] MEDS: Levothyroxine TAB* 75 MCG TAB PO SCH (05:20)
[2017-06-24] MEDS: traMADol TAB* 50 MG PO PRN ×2 (05:25→13:09)
[2017-06-24 05:36] LABS: BUN/Creatinine Ratio 14.8 (8-20); Calcium 8.7 mg/dL (8.6-10.3); EGFR Non-African American 95.6 (>60); Potassium 3.7 mmol/L (3.5-5.0)
[2017-06-24] MEDS: Acetaminophen TAB* 325 MG PO PRN (08:31)
[2017-06-24] MEDS: Aspirin Low Dose CHEW TAB* 81 MG PO SCH (08:31)
[2017-06-24] MEDS: Cyanocobalamin TAB* 500 MCG PO SCH (08:32)
[2017-06-24] MEDS: Magnesium Hydroxide LIQ* 30 ML UDC PO PRN (08:32)
[2017-06-24] MEDS: Docusate CAP* 100 MG PO SCH (08:32)
--- NOTE | 2017-06-24 09:06 | PN ---
Progress Note - Progress Note Date of Service: 06/24/17 SOAP: Subjective: Pt. is alert, pain well controlled. Objective: RLE - dressing changed, inc c/d/i. distally nvi. Vital Signs: Temp Pulse Resp BP Pulse Ox 98.6 F 86 16 112/55 96 06/24/17 08:07 06/24/17 08:07 06/24/17 08:07 06/24/17 08:07 06/24/17 08:07 Laboratory Results - last 24 hr 06/24/17 06/24/17 06/24/17 05:02 05:02 05:02 WBC 9.6 RBC 2.68 L Hgb 9.4 L Hct 27 L MCV 99 H MCH 35 H MCHC 35 RDW 14 Plt Count 136 L MPV 7 L Neut % (Auto) 71.2 Lymph % (Auto) 17.7 L Vance % (Auto) 10.6 H Eos % (Auto) 0.2 Baso % (Auto) 0.3 Absolute Neuts (auto) 6.8 Absolute Lymphs (auto) 1.7 Absolute Monos (auto) 1.0 H Absolute Eos (auto) 0 Absolute Basos (auto) 0 Absolute Nucleated RBC 0 Nucleated RBC % 0 INR (Anticoag Therapy) 2.33 H Sodium 136 Potassium 3.7 Chloride 105 Carbon Dioxide 28 Anion Gap 3 BUN 9 Creatinine 0.61 Est GFR ( Amer) 123.0 Est GFR (Non-Af Amer) 95.6 BUN/Creatinine Ratio 14.8 Glucose 99 Calcium 8.7 Assessment: 77 yo F pod 2 s/p RTHA Plan: wbat rle - post hip precautions pt/ot d/c lovenox hold coumadin tonight plan d/c to home today with vns
[2017-06-24 12:06] VITALS: BP 112/62
--- NOTE | 2017-06-24 17:52 | DS ---
AMENDED REPORT NOW INCLUDES COSIGNER DESIGNATION - ESIGNED BEFORE ADJUSTMENT DISCHARGE SUMMARY: DATE OF ADMISSION: 06/22/17 DATE OF DISCHARGE: 06/24/17 PROVIDER: Monse Lynne MD * (DICTATED BY WALDO PICKARD) ADMITTING DIAGNOSIS: Status post right total hip arthroplasty for treatment of right hip osteoarthritis. SECONDARY DIAGNOSES: 1. Hypothyroidism. 2. High cholesterol. 3. Sleep apnea. 4. History of liver cancer. CONSULTATIONS: Medicine, Neurology, Physical Therapy, and Occupational Therapy. HISTORY OF PRESENT ILLNESS: Ms. Mann is a 77-year-old female who presented to the clinic with right hip pain due to severe osteoarthritis. She failed conservative measures and therefore agreed to undergo a right total hip arthroplasty with Dr. Lynne on 06/22/17. HOSPITAL COURSE: The patient was admitted to [facility] on 06/22/17. She underwent a right total hip arthroplasty. Postoperatively, she recovered on the short-stay surgical unit. Postop day 1, the Lam was removed. She was able to urinate on her own. She was advanced to a regular diet without difficulty and her pain was controlled with oral Percocet. She was restarted on home medications. Her labs and vitals remained stable. She does have some episodes of dizziness that improved the next day. She was able to weight bear as tolerated on the right lower extremity. She advanced appropriately with physical therapy and occupational therapy. She was cleared by Medicine and Neurology and the dizziness went away. Her DVT prophylaxis was managed with Lovenox and Coumadin until she reached a therapeutic INR. By postop day 2, she was orthopedically and medically stable for discharge to home with VNS. PHYSICAL EXAMINATION: General: A 77-year-old well-developed, well-nourished female, in no acute distress. Alert and oriented x3 with appropriate mood and affect. Left lower extremity: The incision is healing well with no evidence of infection. The dressing was changed. Positive dorsiflexion and plantar flexion of the ankle. Calves soft and nontender. Neurovascularly intact. DISCHARGE CONDITION: Stable. DISCHARGE MEDICATIONS: Home medications continued on discharge to include: 1. Cyanocobalamin/vitamin B12 tabs 500 mcg one by mouth daily. 2. Ascorbic acid/vitamin C 1000 mg by mouth daily. 3. Epinephrine 0.3 mL subcutaneous once as needed. 4. Multivitamin 1 cap by mouth daily. 5. Aspirin 81 mg daily. The patient was instructed not to take this with Coumadin. 6. Levothyroxine 75 mcg by mouth in the morning. 7. Glucosamine chondroitin 1 tab by mouth daily. 8. Calcium 150 mg 1 by mouth daily. 9. Cholecalciferol 1000 mg by mouth daily. 10. Calcium citrate 200 mg tabs 2 tabs by mouth daily. 11. Heth-3 one capsule 1000 units 1 by mouth daily. New medications on discharge to include: 1. Coumadin 2 mg take 1 to 3 tabs daily as directed by doctor. 2. Tramadol 50 mg 1 to 2 tabs every 4 to 6 hours as needed for pain. 3. Colace 100 mg take 2 to 3 times a day as needed for constipation. DISCHARGE INSTRUCTIONS: The patient will continue to be weightbearing as tolerated. It is okay for her to shower on postop day #3, no swimming, bathing , or submerging the wound. She should use gentle soap and pat dry. Cover with gauze and tape. Call the orthopedic office with increased drainage, redness, or increased pain. Go to the ER with shortness of breath, chest pain or fever more than 101.5. She should eat a regular diet with increased fluid and fiber to prevent constipation and continue use of stool softeners. Call the office with no bowel movement within 48 hours. She should continue posterior hip precautions and not bend the leg greater than 90 degrees and be cautious with internal rotation. She should continue physical therapy and occupational therapy. Home nurses to do wound checks and INR draws on Mondays and . She will continue Coumadin for 1 month for DVT prophylaxis; on 06/24, hold; on 06/25/17, 2 mg; redraw on 06/26/17. She is instructed to stop aspirin while on Coumadin. Her pain will be controlled with tramadol. She may take Tylenol with the tramadol with maximum dose of 4000 mg of Tylenol a day. She should continue Colace 2 to 3 times a day for constipation. She will require antibiotics prior to any dental workup. She will follow up with Dr. Lynne within 10 to 14 days and should call to schedule appointment if she does not already have one. KELLY SANCHEZ, WALDO [id number]/[facility] #: [id number] KEV
== END 2017-06-24 14:15 | disposition home health service (06) | DRG 470 ==
LOC: AA 07:34 → SSU 15:21
PROVIDERS: ADMIT Orthopaedic Surgery Adult Reconstructive Orthopaedic Surgery; ATTEND Orthopaedic Surgery Adult Reconstructive Orthopaedic Surgery
PROC: 0SR904A Replacement of Right Hip Joint with Ceramic on Polyethylene Synthetic Substitute, Uncemented, Open Approach (ICD-10-PCS; principal; 2017-06-22 10:00)
DX: M16.11 Unilateral primary osteoarthritis, right hip (principal); E03.9 Hypothyroidism, unspecified; G47.33 Obstructive sleep apnea (adult) (pediatric); E78.5 Hyperlipidemia, unspecified; R42 Dizziness and giddiness; H53.8 Other visual disturbances; Z90.721 Acquired absence of ovaries, unilateral; Z79.82 Long term (current) use of aspirin; Z85.05 Personal history of malignant neoplasm of liver; Z90.710 Acquired absence of both cervix and uterus; Z88.8 Allergy status to other drugs, medicaments and biological substances; Z82.5 Family history of asthma and other chronic lower respiratory diseases; Z83.3 Family history of diabetes mellitus
CPT/HCPCS: 36415; 70450; 72170; 80048; 80053; 85014; 85018; 85025; 85610; 88304; 88311; 93880; 94760; A9270-GY; J0690; J1100; J1200; J1650; J1885; J2250; J2405; J2704; J2795; J3010

== ENCOUNTER 2017-12-27 07:49 | Day surgery (SDC) | payer MEDICARE, OTHER ==
[~2017-12-27 07:49] MED LIST changes: -Famotidine IV* 10 MG/ML 2 ML (20 mg) IV ONE; -Metoclopramide TAB* 10 MG PO ONE
[2017-12-27] MEDS ORDERED: Proparacaine 0.5% OPHTH.SOL* 15 ML BTL ONE (09:26)
[2017-12-27] MEDS ORDERED: Lidocaine 2% EPI 1:200000 MPF*10-20 ML VIAL ONE (09:26)
[2017-12-27] MEDS ORDERED: Ketorolac 0.5% OPHTH (NF) 0.5 % 5 ML BTL ONE (09:26)
[2017-12-27] MEDS ORDERED: Phenylephrine 2.5% OPTH.SOL* 2 ML BTL ONE (09:26)
[2017-12-27] MEDS ORDERED: Cyclopentolate 1% OPTH.SOL* 2 ML BTL ONE (09:26)
[2017-12-27] MEDS ORDERED: Povidone Iodine 5% OPTH* 30 ML BTL ONE (09:26)
[2017-12-27] MEDS ORDERED: acetaZOLAMIDE TAB* 250 MG ONE (09:26)
[2017-12-27] MEDS ORDERED: Lidocaine 1%* 5 ML VIAL ONE (09:26)
[2017-12-27] MEDS ORDERED: Neomycin/Polymy/Dex OPTH.SUSP* MAXITROL 0.1% 5 ML ONE (09:26)
[2017-12-27] MEDS ORDERED: Midazolam* 1 MG/ML 2 ML VIAL (2 MG) ONE ×2 (09:56→10:14)
[2017-12-27 10:49] VITALS: BP 117/69
--- NOTE | 2017-12-27 21:36 | OP ---
DATE OF OPERATION: 12/27/17 [facility] DATE OF : 44 SURGEON: Ac Patton M.D. PREOPERATIVE DIAGNOSIS: Cataract, left eye. POSTOPERATIVE DIAGNOSIS: Cataract, left eye. OPERATIVE PROCEDURE: Extracapsular cataract extraction with intraocular lens implant, left eye. DESCRIPTION OF PROCEDURE: The patient was brought to the operating room after being given 1/2% Alcaine with epinephrine drops in the preoperative area. The eye was prepped and draped in the usual sterile fashion. Sterile drape and eyelid speculum were placed. Again, topical 1/2% Alcaine with epinephrine was given. A paracentesis incision was made at the 3 o'clock position with the No.75 blade. Clear cornea incision 2.2 x 2.2-mm was created at the 6 o'clock position starting at the anterior limbus using the 2.2-mm keratome. The anterior chamber was irrigated with 0.4 mL of 1% non-preservative intracameral lidocaine and filled with DisCoVisc. A capsulorrhexis was completed using the cystotome and the Utrata forceps. Hydrodissection was performed with balanced salt solution. The lens nucleus was removed with the Phacoemulsification handpiece without incident. Cortex was removed with the irrigation-aspiration handpiece. The capsular bag was re-inflated using DisCoVisc and an [id number] implant was inserted with the shooter. The irrigation-aspiration handpiece was used to remove all residual DisCoVisc. The eye was refilled with balanced salt solution and the wound checked and found to be watertight. Topical Maxitrol drops were given. [id number]/[facility] #: [id number] MTDD
== END 2017-12-27 10:38 | disposition home or self-care (01) ==
LOC: OREAST 07:49
PROVIDERS: ATTEND Specialist
DX: H25.12 Age-related nuclear cataract, left eye (principal); M81.0 Age-related osteoporosis without current pathological fracture; E03.9 Hypothyroidism, unspecified; G47.33 Obstructive sleep apnea (adult) (pediatric); E78.2 Mixed hyperlipidemia
CPT/HCPCS: A9270-GY; J2250; V2632

== ENCOUNTER 2018-01-03 08:00 | Day surgery (SDC) | payer MEDICARE, OTHER ==
[~2018-01-03 08:00] MED LIST changes: +Acetaminophen TAB* 325 MG PO PRN
[2018-01-03] MEDS ORDERED: fentaNYL* 50 MCG/ML 2 ML VIAL (100 MCG VIAL) ONE (09:37)
[2018-01-03] MEDS ORDERED: Midazolam* 1 MG/ML 2 ML VIAL (2 MG) ONE (09:37)
[2018-01-03] MEDS ORDERED: Ketorolac 0.5% OPHTH (NF) 0.5 % 5 ML BTL ONE (09:56)
[2018-01-03] MEDS ORDERED: Cyclopentolate 1% OPTH.SOL* 2 ML BTL ONE (09:56)
[2018-01-03] MEDS ORDERED: Povidone Iodine 5% OPTH* 30 ML BTL ONE (09:56)
[2018-01-03] MEDS ORDERED: Lidocaine 1%* 5 ML VIAL ONE (09:56)
[2018-01-03] MEDS ORDERED: Phenylephrine 2.5% OPTH.SOL* 2 ML BTL ONE (09:56)
[2018-01-03] MEDS ORDERED: acetaZOLAMIDE TAB* 250 MG ONE (09:56)
[2018-01-03] MEDS ORDERED: Lidocaine 2% EPI 1:200000 MPF*10-20 ML VIAL ONE (09:56)
[2018-01-03] MEDS ORDERED: Proparacaine 0.5% OPHTH.SOL* 15 ML BTL ONE (09:56)
[2018-01-03] MEDS ORDERED: Neomycin/Polymy/Dex OPTH.SUSP* MAXITROL 0.1% 5 ML ONE (09:56)
[2018-01-03 10:27] VITALS: BP 136/67
--- NOTE | 2018-01-03 13:15 | OP ---
AMENDED REPORT TO CORRECT DATE OF OPERATION - ESIGNED BEFORE ADJUSTMENT DATE OF OPERATION: 01/03/18 - [place] DATE OF : 44 SURGEON: Ac Patton M.D. PREOPERATIVE DIAGNOSIS: Cataract, right eye. POSTOPERATIVE DIAGNOSIS: Cataract, right eye. OPERATIVE PROCEDURE: Extracapsular cataract extraction with intraocular lens implant right eye. DESCRIPTION OF PROCEDURE: The patient was brought to the operating room after being given 1/2% Alcaine with epinephrine drops in the preoperative area. The eye was prepped and draped in the usual sterile fashion. Sterile drape and eyelid speculum were placed. Again, topical 1/2% Alcaine with epinephrine was given. A paracentesis incision was made at the 9 o'clock position with the No.75 blade. Clear cornea incision 2.2 x 2.2-mm was created at the 12 o'clock position starting at the anterior limbus using the 2.2-mm keratome. The anterior chamber was irrigated with 0.4 mL of 1% non-preservative intracameral lidocaine and filled with DisCoVisc. A capsulorrhexis was completed using the cystotome and the Utrata forceps. Hydrodissection was performed with balanced salt solution. The lens nucleus was removed with the Phacoemulsification handpiece without incident. Cortex was removed with the irrigation-aspiration handpiece. The capsular bag was re-inflated using DisCoVisc and an [id number] implant was inserted with the shooter. The irrigation-aspiration handpiece was used to remove all residual DisCoVisc. The eye was refilled with balanced salt solution and the wound checked and found to be watertight. Topical Maxitrol drops were given. [id number]/[facility] #: [id number] [facility] CENTEREdil
== END 2018-01-03 10:35 | disposition home or self-care (01) ==
LOC: OREAST 08:00
PROVIDERS: ATTEND Specialist
DX: H25.11 Age-related nuclear cataract, right eye (principal); E03.8 Other specified hypothyroidism; E78.2 Mixed hyperlipidemia; G47.33 Obstructive sleep apnea (adult) (pediatric); M81.0 Age-related osteoporosis without current pathological fracture; M19.90 Unspecified osteoarthritis, unspecified site; R31.29 Other microscopic hematuria
CPT/HCPCS: A9270-GY; J2250; J3010; V2632

== ENCOUNTER 2019-09-04 19:59 | Emergency (ER) | payer MEDICARE, OTHER ==
--- OUTSIDE RECORDS SUMMARY | 2019-09-04 20:18 | XMS REPORT | Continuity of Care Document ---
:1940 External Reference #:[id number] Author Name Norman Peters M.D. 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 Onset: 05/03/2017 the pelvic region and thigh Social History Type Date Description Comments Sex Unknown Tobacco Use Start: Unknown Never Smoked Cigarettes Smoking Status Reviewed: 07/25/19 Never Smoked Cigarettes Smokeless Tobacco Never Used Smokeless Tobacco ETOH Use Consumes 1 glass of wine per day Recreational Drug Use Denies Drug Use Tobacco Use Start: Unknown Patient has never smoked Exercise Type/Frequency Exercises regularly Exercise Type/Frequency PT Following hip replacement Allergies, Adverse Reactions, Alerts Active Allergies Reaction Severity Comments Date Latex 06/12/2007 Bee Sting 12/19/2014 Lactose (Intolerance) 12/19/2014 Medications Active Medications SIG Qnty Indications Ordering Date Provider Amoxicillin take 4 tabs 1 hour 4caps Kandace Anna MD 11/02/2018 500mg prior to dental Capsules work/gi or gu procedures Compression - Ble 1units M25.551 Monse Lynne, 09/06/2017 Stockings swelling/edema- M.DWanda Misc need thigh high Levoxyl 1 qam 90tabs Alpesh Shaffer 06/12/2007 75mcg Tablets Madhav Banuelos,FACP Epipen 2-Suresh use as directed Unknown 0.3mg/0.3ML Solution Auto-Inject Aspirin 1 po daily Unknown 81mg Vitamin B Complex Unknown Vitamin C Unknown Vitamin D Unknown Glucosamine Unknown Chondroitin Centrum Silver 1 by mouth every 30tabs Unknown day Tablets Anastrozole 1 by mouth every Unknown 1mg day Tablets Immunizations CPT Code Status Date Vaccine Lot # [id number] Given 12/30/2014 Fluvirin Im 3Yrs And Older [id number] Given 07/09/2009 Influenza Virus Vaccine, Pandemic Formulation [id number] Given 07/09/2009 Administration Swine Flu Shot [id number] Given 08/31/2007 Pneumonia Vaccine 72066 Given 08/31/2007 Pneumonia Vaccine [id number] Vital Signs Date Vital Result Comment 07/25/2019 9:00am Height 61 inches 5'1" Weight 135.00 lb Heart Rate 88 /min BP Systolic 138 mmHg BP Diastolic 80 mmHg Respiratory Rate 18 /min Body Temperature 98.9 F Pain Level 5 BMI (Body Mass Index) 25.5 kg/m2 08/24/2018 12:59pm Height 61 inches 5'1" Weight 131.38 lb Heart Rate 76 /min BP Systolic 122 mmHg BP Diastolic 90 mmHg O2 % BldC Oximetry 98 % BMI (Body Mass Index) 24.8 kg/m2 Results Description No Information Available Procedures Date Code Description Status 01/09/2019 [id number] Mammogram Completed 12/25/2018 [id number] Colonoscopy Completed 12/10/2012 [id number] Colonoscopy Completed 11/20/2012 [id number] Colonoscopy Completed 08/18/2008 [id number] Mammogram Completed Medical Devices Description No Information Available Encounters Description No Information Available Assessments Date Code Description Provider 07/25/2019 M76.821 Posterior tibial tendinitis, right leg Norman Peters M.D. Plan of Treatment Future Appointment(s):07/31/2019 10:30 am - Benita Linares MD at [facility] Wmaqbshyxtx78/02/2020 - Norman Peters M.D.M76.821 Posterior tibial tendinitis , right legNew Therapy:Rehab ReferralFollow up:As needed Functional Status Description No Information Available Mental Status Description No Information Available Referrals Description No Information Available
--- NOTE | 2019-09-04 20:36 | ED ---
GI/ HPI - HPI Summary HPI Summary: 79 [facility] by complains of shooting neck pain after getting food stuck in her esophagus while eating dinner around 1915 tonight. Patient thinks she swallowed a piece of angelica which got stuck in right throat and caused shooting pain into her head. She states that the piece of food has moved away from right side of her throat and is now in the middle of her throat. Patient reports some chest pain. This has never happened before. Patient denies abdominal pain. The patient rates the pain 8/10 in severity. Symptoms aggravated by swallowing. Symptoms alleviated by nothing. Medications reviewed. Allergies noted. - History of Current Complaint Chief Complaint: EDForeignBodyEsophag Time Seen by Provider: 09/04/19 20:25 Stated Complaint: SHOOTING PAIN IN NECK PER PT Hx Obtained From: Patient Onset/Duration: Started Hours Ago, Still Present Timing: Constant Severity: Severe Pain Intensity: 8 Aggravating Factor(s): Swallowing Alleviating Factor(s): Nothing - Additional Pertinent History Primary Care Physician: [place] - Allergy/Home Medications Allergies/Adverse Reactions: Allergies Allergy/AdvReac Type Severity Reaction Status Date / Time iodine Allergy route was Verified 12/25/18 15:21 iv-hives lactose Allergy Diarrhea Verified 12/25/18 15:21 latex Allergy Rash Verified 12/25/18 15:21 morphine Allergy Nausea And Verified 12/25/18 15:21 Vomiting bandaids Allergy Rash Uncoded 12/25/18 15:21 wasp Allergy anaphylacti Uncoded 12/25/18 15:21 c PMH/Surg Hx/FS Hx/Imm Hx Endocrine/Hematology History: Reports: Hx Thyroid Disease - ON MEDICATION FOR Denies: Hx Diabetes Cardiovascular History: Reports: Hx Hypercholesterolemia Denies: Hx Hypertension, Hx Myocardial Infarction, Hx Pacemaker/ICD, Hx Peripheral Vascular Disease, Other Cardiovascular Problems/Disorders Respiratory History: Reports: Hx Asthma - A CHILD, Hx Sleep Apnea GI History: Reports: Other GI Disorders - MASSIVE LIVER HEMORRHAGE 40 YRS AGO- STATES WAS RELATED TO ESTROGREN History: Denies: Hx Renal Disease Musculoskeletal History: Reports: Hx Arthritis - "ALL OVER" Denies: Hx Rheumatoid Arthritis, Hx Osteoporosis - OSTEOPENIA, Other Musculoskeletal History Sensory History: Reports: Hx Cataracts - BILATERAL, Hx Contacts or Glasses Denies: Hx Hearing Aid Opthamlomology History: Reports: Hx Cataracts - BILATERAL, Hx Contacts or Glasses Neurological History: Denies: Hx Headaches, Hx Seizures, Hx Transient Ischemic Attacks (TIA) Psychiatric History: Denies: Hx Anxiety, Hx Depression, Hx Panic Disorder - Cancer History Cancer Type, Location and Year: 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 1972, 2 LIVER SURGERIES, [id number] RESECTION. APPENDECTOMY, 1971, [place]. OVARY Removed 06/04 at [facility]. HIP REPLACEMENT-05/2017 Hx Anesthesia Reactions: Yes - HALLUCINATIONS AND DIZZINESS, NAUSEA AND VOMITTING WITH HIP REPLACEMENT Infectious Disease History: No Infectious Disease History: Denies: History Other Infectious Disease, Traveled Outside the [place] in Last 30 Days - Family History Known Family History: Positive: Other - cancer - Social History Alcohol Use: Daily Alcohol Amount: 1 glass wine Substance Use Type: Reports: None Hx Tobacco Use: No Smoking Status (MU): Never Smoked Tobacco Have You Smoked in the Last Year: No Review of Systems Positive: Other - neck pain, throat pain Positive: Chest Pain Negative: Abdominal Pain All Other Systems Reviewed And Are Negative: Yes Physical Exam - Summary Physical Exam Summary: Constitutional: Well-developed, Well-nourished, Alert. (-) Distressed Skin: Warm, Dry HENT: Normocephalic; Atraumatic Eyes: Conjunctiva normal Neck: Musculoskeletal ROM normal neck. (-) JVD, (-) Stridor, (-) Tracheal deviation Cardio: Rhythm regular, rate normal, Heart sounds normal; Intact distal pulses; The pedal pulses are 2+ and symmetric. Radial pulses are 2+ and symmetric. (-) Murmur Pulmonary/Chest wall: Effort normal. (-) Respiratory distress, (-) Wheezes, (-) Rales Abd: Soft, (-) tenderness, (-) Distension, (-) Guarding, (-) Rebound Musculoskeletal: (-) Edema Lymph: (-) Cervical adenopathy Neuro: Alert, Oriented x3 Psych: Mood and affect Normal Triage Information Reviewed: Yes Vital Signs On Initial Exam: Initial Vitals Temp Pulse Resp BP Pulse Ox 98.4 F 86 20 163/85 96 09/04/19 20:08 09/04/19 20:08 09/04/19 20:08 09/04/19 20:08 09/04/19 20:08 Vital Signs Reviewed: Yes Procedures - Sedation Patient Received Moderate/Deep Sedation with Procedure: No Diagnostics - Vital Signs Vital Signs Temp Pulse Resp BP Pulse Ox 09/04/19 20:08 98.4 F 86 20 163/85 96 - Laboratory Lab Statement: Any lab studies that have been ordered have been reviewed, and results considered in the medical decision making process. - EKG 2112 Cardiac Rate: NL - 79 BPM EKG Rhythm: Sinus Rhythm Summary of EKG Findings: Minimal ST depressions in the lateral leads. Otherwise normal EKG. ED physician has reviewed and interpreted this EKG Re-Evaluation - Re-Evaluation First Eval Re-Evaluation Time: 21:10 Change: Improved GIGU Course/Dx - Course Course Of Treatment: 79 y/o F c/o shooting neck pain after getting food stuck in her esophagus around 1915 tonight. Patient thinks she swallowed a piece of angelica which got stuck in right throat. The piece of food now feels like it's in the middle of her throat. Patient reports some chest pain. Physical exam unremarkable. An EKG shows sinus rhythm [address] depressions in the lateral leads. Otherwise normal EKG. Patient was given angelica michel followed by apple sauce. Upper esophageal pain now resolved. Patient is comfortable with d/ c home. Patient will be discharged home with follow up from her primary care provider in 2-3 days. - Diagnoses Provider Diagnoses: Food impaction of esophagus Discharge ED - Sign-Out/Discharge Documenting (check all that apply): Patient Departure - Discharge Plan Condition: Stable Disposition: HOME Patient Education Materials: Esophageal Foreign Body (ED) Referrals: Susie Wilson MD [Primary Care Provider] - 2 Days Additional Instructions: Follow up with your primary care provider in 2-3 days. Return to the Emergency Department for new or worsening symptoms. - Billing Disposition and Condition Condition: STABLE Disposition: Home - Attestation Statements Document Initiated by Scribe: Yes Documenting Scribe: Minerva Hall Provider For Whom Scribe is Documenting (Include Credential): Turner Mendiola DO Scribe Attestation: Minerva Hogan, scribed for Turner Mendiola DO on 09/04/19 at 2140. Scribe Documentation Reviewed: Yes Provider Attestation: The documentation as recorded by the scribe, Minerva Hall accurately reflects the service I personally performed and the decisions made by me, Turner Mendiola DO Status of Scribe Document: Viewed
[2019-09-04 21:32] VITALS: BP 155/78
== END 2019-09-04 21:32 | disposition home or self-care (01) ==
LOC: ED 19:59
DX: T18.128A Food in esophagus causing other injury, initial encounter (principal); X58.XXXA Exposure to other specified factors, initial encounter; Y92.9 Unspecified place or not applicable; E07.9 Disorder of thyroid, unspecified; E78.00 Pure hypercholesterolemia, unspecified; Z90.710 Acquired absence of both cervix and uterus; Z90.89 Acquired absence of other organs; Z96.649 Presence of unspecified artificial hip joint; Z79.899 Other long term (current) drug therapy; Z88.5 Allergy status to narcotic agent; Z91.041 Radiographic dye allergy status; Z91.040 Latex allergy status
CPT/HCPCS: 93005; 99283

== ENCOUNTER 2023-08-31 15:12 | Inpatient (IN) ==
[2023-08-31] MEDS ORDERED: Polyethylene Glycol 3350 17 GM PACKET PO PRN (15:47)
[2023-08-31] MEDS ORDERED: Ondansetron 4 mg VIAL 2 MG/ML 2 ml VIAL IV PRN (15:47)
[2023-08-31] MEDS ORDERED: Senna TAB 8.6 mg TAB PO PRN (15:47)
[2023-08-31] MEDS ORDERED: HYDROcodone/ACETAMIN 5/325 mg TAB PO PRN (15:56)
[2023-08-31] MEDS ORDERED: Dextran 70/Hypromellose Tears Eye Drops 15 ml BTL (for Artificials Tears) BOTH EYES PRN (15:56)
[2023-08-31] MEDS ORDERED: Calcium Carb (TUMS) 500 mg CHEW TAB PO PRN (15:56)
[2023-08-31] MEDS ORDERED: Phenol 1.4% Throat Spray BTL MT PRN (15:56)
[2023-08-31] MEDS ORDERED: Benzocaine/Menthol LOZ MT PRN (15:56)
[2023-08-31] MEDS: HYDROcodone/ACETAMIN 5/325 mg TAB PO PRN (20:30)
[2023-09-01] MEDS ORDERED: HYDROmorphone 0.5 MG/0.5 ML SYRINGE IV SLOW PU PRN (00:17)
[2023-09-01] MEDS: Lactated Ringers 1000 ml BAG 1,000 ML IV SCH ×2 (00:46→14:17)
[2023-09-01] MEDS: HYDROmorphone 0.5 MG/0.5 ML SYRINGE IV SLOW PU PRN (04:56)
[2023-09-01] MEDS ORDERED: Rocuronium 50 mg VIAL 10 mg/ml 5 ml VIAL (50 mg) IV ONE (08:03)
[2023-09-01] MEDS ORDERED: fentaNYL 100 mcg/2 ml 50 MCG/ML VIAL IV ONE ×2 (08:03→10:11)
[2023-09-01] MEDS ORDERED: Lidocaine 2% PF 5 ML VIAL INJ ONE ×2 (08:07→10:11)
[2023-09-01] MEDS ORDERED: Propofol 10 MG/ML 20 ML BTL IV ONE ×2 (08:07→10:09)
[2023-09-01] MEDS ORDERED: Ondansetron 4 mg VIAL 2 MG/ML 2 ml VIAL IV ONE (08:07)
[2023-09-01] MEDS ORDERED: Dexamethasone IV 4 MG/ML VIAL 1 ml VIAL IV SLOW PU ONE (08:07)
[2023-09-01 08:22] LABS: INR 1.09 (0.83-1.13)
[2023-09-01] MEDS ORDERED: Chlorhexidine MOUTHWASH 0.12% 15 ML UDC ONE (08:42)
[2023-09-01] MEDS ORDERED: Gelfoam Sponge SIZE 100 SPONGE ONE (08:48)
[2023-09-01] MEDS ORDERED: Thrombin 5,000 UNITS(BOVINE) for Ultrasound Guided Pseudoaneursym ONE (08:48)
[2023-09-01] MEDS ORDERED: ceFAZolin VIAL VIAL ONE (08:48)
[2023-09-01] MEDS ORDERED: Lidocaine 1% w EPI 1:100,000 MDV 20 ML VIAL ONE (08:48)
[2023-09-01] MEDS ORDERED: Naloxone 0.4 mg VIAL 0.4 mg/ml 1 ml VIAL IV PRN (08:57)
[2023-09-01] MEDS ORDERED: fentaNYL 100 mcg/2 ml 50 MCG/ML VIAL IV PRN (08:57)
[2023-09-01] MEDS ORDERED: ceFAZolin 2 GM in NS PREMIX 2 GM/100 ML BAG IVPB ONE (08:57)
[2023-09-01] MEDS ORDERED: Ondansetron 4 mg VIAL 2 MG/ML 2 ml VIAL IV PRN ×2 (08:57→11:54)
[2023-09-01 09:24] LABS: Albumin 4.2 g/dL (3.2-5.2); Albumin/Globulin Ratio 1.7 (1-3); Calcium 9.5 mg/dL (8.6-10.3); Creatinine, Serum 0.68 mg/dL (0.51-0.95); Globulin 2.5 g/dL (2-4); Potassium 3.9 mmol/L (3.5-5.0); Total Bilirubin 0.6 mg/dL (0.2-1.0); Total Protein 6.7 g/dL (6.4-8.9); eGFR CKD-EPI 87.4 (>60)
[2023-09-01] MEDS ORDERED: HYDROmorphone 0.5 MG/0.5 ML SYRINGE IV ONE (10:23)
[2023-09-01] MEDS ORDERED: Phenylephrine 40 mcg/mL 10mL (400mcg) SYRINGE IV ONE (10:38)
[2023-09-01] MEDS ORDERED: Dextran 70/Hypromellose Tears Eye Drops 15 ml BTL (for Artificials Tears) BOTH EYES PRN (11:54)
[2023-09-01] MEDS ORDERED: Phenol 1.4% Throat Spray BTL MT PRN (11:54)
[2023-09-01] MEDS ORDERED: Benzocaine/Menthol LOZ MT PRN (11:54)
[2023-09-01 14:35] LABS: ABS Eosinophils 0.1 10^3/uL (0.0-0.5); ABS Lymphocytes 0.9 10^3/uL (1.0-4.8); ABS Monocytes 0.4 10^3/uL (0.0-0.9); ABS Nucleated RBC 0.01 10^3/ul; Eosinophil % 0.4 %; Hematocrit 43.5 % (35-45); Hemoglobin 14.5 g/dL (11.5-14.3); Lymphocyte % 6.6 %; Mean Corpuscular Hemoglobin 33.1 pg (27-33); Mean Corpuscular Hgb Conc 33.4 g/dL (31-36); Mean Corpuscular Volume 99.2 fL (80-97); Mean Platelet Volume 6.5 fL (7.5-11.2); Platelet Count 220 10^3/uL (150-450); Red Blood Count 4.39 10^6/uL (3.63-4.92); Red Cell Distribution Width 13.5 % (12-17); White Blood Count 14.4 10^3/uL (3.8-11.8)
[2023-09-01] MEDS: HYDROcodone/ACETAMIN 5/325 mg TAB PO PRN (17:54)
[2023-09-02 05:54] VITALS: BP 102/57
[2023-09-02] MEDS: CMCS:Anastrozole 1 mg TAB (NF) PO SCH (08:35)
[2023-09-02] MEDS: Cholecalciferol (VIT D3) 1,000 unit TAB PO SCH (08:36)
== END 2023-09-02 11:10 | disposition home or self-care (01) | DRG 520 ==
LOC: SSU 16:27 → SUATTDRO 16:27
PROVIDERS: ADMIT Neurological Surgery; ATTEND Internal Medicine

== ENCOUNTER 2024-08-13 07:44 | Observation (INO) ==
[~2024-08-13 07:44] MED LIST changes: -Acetaminophen TAB* 325 MG PO PRN; -Buffered Lidocaine 0.9% SYRIN* 5 ML/SYR SYRINGE INTRADERM ONE; +Metoclopramide 5 MG/ML VIAL (10 mg) IV PRN; +Naloxone 0.4 mg VIAL 0.4 mg/ml 1 ml VIAL IV PRN
[2024-08-13] MEDS ORDERED: Tranexamic Acid 1 GM/100ML BAG 2,000 MG/200 ML BAG IV ONE (08:05)
[2024-08-13] MEDS ORDERED: ceFAZolin 2 GM PREMIX 2 GM/50 ML BAG ONE (08:05)
[2024-08-13 08:32] LABS: Rapid COVID-19 Molecular Undetected (Undetected)
[2024-08-13] MEDS ORDERED: Dexamethasone IV 4 MG/ML VIAL 1 ml VIAL ONE ×2 (08:52→08:56)
[2024-08-13] MEDS ORDERED: ROPIVACAINE 5 MG/ML 30 ML BTL (0.5%) ONE (08:52)
[2024-08-13] MEDS ORDERED: fentaNYL 100 mcg/2 ml 50 MCG/ML VIAL ONE ×3 (08:53→12:05)
[2024-08-13] MEDS ORDERED: Ondansetron 4 mg VIAL 2 MG/ML 2 ml VIAL ONE ×2 (08:56→12:13)
[2024-08-13] MEDS ORDERED: Lidocaine 2% PF 5 ML VIAL ONE (08:56)
[2024-08-13] MEDS ORDERED: Propofol 10 MG/ML 20 ML BTL ONE (08:56)
[2024-08-13] MEDS ORDERED: Phenylephrine IV 10 MG/ML 1 ml VIAL ONE (09:49)
[2024-08-13] MEDS ORDERED: Ondansetron ODT 4 mg TAB 4 MG TAB PO PRN (11:00)
[2024-08-13] MEDS ORDERED: Calcium Carb (TUMS) 500 mg CHEW TAB PO PRN (11:00)
[2024-08-13] MEDS ORDERED: Magnesium Hydroxide LIQ 30 ML UDC PO PRN (11:00)
[2024-08-13] MEDS ORDERED: Ondansetron 4 mg VIAL 2 MG/ML 2 ml VIAL IV PRN (11:00)
[2024-08-13] MEDS ORDERED: Scopolamine 1 mg/72hr PATCH TRANSDERM PRN (11:04)
[2024-08-13] MEDS: fentaNYL 100 mcg/2 ml 50 MCG/ML VIAL IV PRN (12:06)
[2024-08-13] MEDS: Ondansetron 4 mg VIAL 2 MG/ML 2 ml VIAL IV PRN (12:14)
[2024-08-13] MEDS ORDERED: Acetaminophen IV 1 GM/100ML 1,000 MG/100 ML BAG IV ONE (13:06)
[2024-08-13] MEDS: Acetaminophen IV 1 GM/100ML 1,000 MG/100 ML BAG IV ONE (13:07)
[2024-08-13] MEDS: Lactated Ringers 1000 ml BAG 1,000 ML IV SCH ×2 (14:00→15:11)
[2024-08-13] MEDS ORDERED: Albuterol HFA INHALER 8 gm MDI INH PRN (14:01)
[2024-08-13] MEDS: Buffered Lidocaine 1% SYRIN 1 ml INTRADERM ONE (15:12)
[2024-08-13] MEDS: ceFAZolin 2 GM PREMIX 2 GM/50 ML BAG IV SCH (17:42)
[2024-08-13] MEDS: Magnesium Hydroxide LIQ 30 ML UDC PO SCH (20:57)
[2024-08-14 05:57] LABS: Hematocrit 31.2 % (35-45); Hemoglobin 10.9 g/dL (11.5-14.3); Mean Platelet Volume 7.1 fL (7.5-11.2); Platelet Count 149 10^3/uL (150-450)
[2024-08-14 06:14] LABS: Calcium 8.9 mg/dL (8.6-10.3); Creatinine, Serum 0.76 mg/dL (0.51-0.95); Potassium 4.1 mmol/L (3.5-5.0); eGFR CKD-EPI 78.2 (>60)
[2024-08-14] MEDS: CMC:Anastrozole 1 mg TAB (NF) PO SCH (08:50)
[2024-08-14] MEDS: Vitamin THERAPEUTIC TAB PO SCH (08:51)
[2024-08-14 11:11] VITALS: BP 100/59
== END 2024-08-14 12:45 | disposition home or self-care (01) ==
LOC: OR 07:44 → SSU 07:44
PROVIDERS: ADMIT Orthopaedic Surgery Adult Reconstructive Orthopaedic Surgery; ATTEND Orthopaedic Surgery Adult Reconstructive Orthopaedic Surgery